=== PATIENT | male | born 2000 | race Caucasian/White ===

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

== ENCOUNTER 2020-05-20 00:05 | Emergency (ER) | payer BC, OTHER ==
[2020-05-20] MEDS ORDERED: Ketorolac 30 MG/ML SDV IVPUSH ONE (00:55)
[2020-05-20] MEDS ORDERED: Prochlorperazine 10 MG in Sodium Chloride 0.9% 50 ML IV ONE (00:55)
[2020-05-20] MEDS ORDERED: diphenhydrAMINE 50 MG/ML SDV IVPUSH ONE (00:55)
[2020-05-20] MEDS ORDERED: Sodium Chloride 0.9% 1,000 ML IV ONE (00:56)
[2020-05-20] MEDS ORDERED: Prochlorperazine 10 MG/2 ML SDV ONE (01:25)
--- NOTE | 2020-05-20 01:28 | EDM.PDOC ---
ED HPI GENERAL MEDICAL PROBLEM - General Chief Complaint: Headache Stated Complaint: HEADACHE Time Seen by Provider: 05/20/20 00:25 - History of Present Illness INITIAL COMMENTS - FREE TEXT/NARRATIVE: HISTORY AND PHYSICAL: History of present illness: This is a 19-year-old gentleman with a history significant for meningitis resulting in chronic migraines who gets monthly migraine injection who presents ER today secondary to not feeling well and having signs and symptoms consistent with breakthrough migraine. I had a discussion with the patient as well as mother over the phone who lives in [place] I believe. She reports that he gets his medication sent to his school and somehow this go around with his medication the school was unable to find his medicine until approximately 7 days after he was sent. She reports that the 7-day delay has caused him to be behind the 8 ball and usually 1 his symptoms are like this he requires a migraine cocktail to break the cycle so that the medication will continue to help. He has tried other of his usual regimens and treatments at home without success. Patient denies any other symptomatology at this time. Patient denies any recent fevers, shakes, chills, nausea, vomiting, diarrhea, dysuria, frequency, urgency, chest pain, shortness of breath. It appears that the patient had a petit mall seizure earlier today which is not unusual for him. Patient reports he usually has 1 every 3 months. Patient reports he was recently diagnosed with coronavirus in April. Review of systems: As per history of present illness and below otherwise all systems reviewed and negative. Past medical history: As per history of present illness and as reviewed below otherwise noncontributory. Surgical history: As per history of present illness and as reviewed below otherwise nonco ntributory. Social history: No reported history of drug or alcohol abuse. Family history: As per history of present illness and as reviewed below otherwise noncontributory. Physical exam: HEENT: Atraumatic, normocephalic, pupils reactive, negative for conjunctival pallor or scleral icterus, mucous membranes moist, throat clear, neck supple, nontender, trachea midline. Lungs: Clear to auscultation, breath sounds equal bilaterally, chest nontender. Heart: S1S2, regular, negative for clicks, rubs, or JVD. Abdomen: Soft, nondistended, nontender. Negative for masses or hepatosplenomegaly. Negative for costovertebral tenderness. Pelvis: Stable nontender. Genitourinary: Deferred. Rectal: Deferred. Extremities: Atraumatic, negative for cords or calf pain. Neurovascular unremarkable. Neuro: Awake, alert, oriented. Cranial nerves II through XII unremarkable. Cerebellum unremarkable. Motor and sensory unremarkable throughout. Exam nonfocal. Assessment and plan: 19-year-old gentleman with a history significant for migraines presents ER today with breakthrough headache most likely secondary to delay in obtaining his monthly migraine medication. Mother reports that usually when he gets like this he requires a cocktail requiring Toradol, Compazine and Benadryl. Patient will be given a "migraine cocktail" as well as IV fluids and will be reevaluated once completed. Patient reports he feels better is tired. Patient will be discharged home in stable condition with instructions to follow-up with his regular physician for further instructions. Reassessment at the time of disposition demonstrates that the patient is in no acute distress. The patient has remained stable throughout the entire ED visit and is without objective evidence for acute process requiring urgent intervent ion or hospitalization. The patient is stable for discharge, counseling is provided as documented above, discussed symptomatic treatment and specific conditions for return. I have spoken with the patient/caregiver and discussed todays findings, in addition to providing specific details for the plan of care. Questions are answered and there is agreement with the plan. Definitive disposition and diagnosis as appropriate pending reevaluation and review of above. headache Pain Score (Numeric/FACES): 8 - Related Data Allergies Allergy/AdvReac Type Severity Reaction Status Date / Time No Known Allergies Allergy Verified 05/20/20 00:24 Home Meds: Home Meds Diclofenac Potassium [Cambia] 50 mg PO ASDIRECTED PRN 09/22/19 [History] FLUoxetine HCl [Prozac] 20 mg PO DAILY 09/22/19 [History] Gabapentin [Neurontin] 1,200 mg PO BID 09/22/19 [History] Shot For Headache Monthly 05/20/20 [History] methylPREDNISolone [Methylprednisolone] 4 mg PO ASDIRECTED 05/20/20 [History] Past Medical History HEENT History: Reports: Impaired Vision Other HEENT History: Glasses Cardiovascular History: Reports: Other (See Below) Other Cardiovascular History: long QT Musculoskeletal History: Reports: None Neurological History: Reports: Other (See Below) Other Neuro History: Viral/Spinal Mengitits Psychiatric History: Reports: Depression - Infectious Disease History Infectious Disease History: Reports: Other (See Below) Other Infectious Disease History: viral/spiral meningitis - Past Surgical History Other HEENT Surgeries/Procedures: Ear Tubes Cardiovascular Surgical History: Reports: None Neurological Surgical History: Reports: None Other Musculoskeletal Surgeries/Procedures:: Torn Meniscus Social & Family History - Family History Family Medical History: Noncontributory - Tobacco Use Tobacco Use Status *Q: Never Tobacco User Second Hand Smoke Exposure: No - Caffeine Use Caffeine Use: Reports: Soda - Recreational Drug Use Recreational Drug Use: No ED ROS GENERAL - Review of Systems Review Of Systems: See Below ED EXAM, GENERAL - Physical Exam Exam: See Below Course - Vital Signs Last Recorded V/S: Last Vital Signs Temp 96.8 F L 05/20/20 00:15 Pulse 68 05/20/20 02:20 Resp 16 05/20/20 02:20 BP 113/70 05/20/20 02:20 Pulse Ox 98 05/20/20 02:20 - Orders/Labs/Meds Meds: Medications Discontinued Medications Generic Name Dose Route Start Last Admin Trade Name Marino PRN Reason Stop Dose Admin Diphenhydramine HCl 25 mg 05/20/20 00:55 05/20/20 01:27 Benadryl IVPUSH 05/20/20 00:56 25 mg ONETIME ONE Administration Sodium Chloride 1,000 mls @ 999 mls/hr 05/20/20 00:56 05/20/20 01:27 Normal Saline IV 05/20/20 01:56 999 mls/hr .Bolus ONE Administration Ketorolac Tromethamine 30 mg 05/20/20 00:55 05/20/20 01:27 Toradol IVPUSH 05/20/20 00:56 30 mg ONETIME ONE Administration Prochlorperazine Edisylate Confirm 05/20/20 01:25 05/20/20 01:32 Compazine Administered 05/20/20 01:26 Not Given Dose 10 mg .ROUTE .STK-MED ONE Prochlorperazine Edisylate 10 mg 05/20/20 01:30 05/20/20 01:30 Compazine IVPUSH 05/20/20 01:31 10 mg ONETIME ONE Administration Departure - Departure Time of Disposition: 02:20 Disposition: Home, Self-Care 01 Clinical Impression: Migraine - Discharge Information Instructions: Recurrent Migraine Headache Referrals: PCP,Not In Area [Primary Care Provider] - Forms: ED Department Discharge Additional Instructions: The following information is given to patients seen in the emergency department who are being discharged to home. This information is to outline your options for follow-up care. We provide all patients seen in our emergency department with a follow-up referral. The need for follow-up, as well as the timing and circumstances, are variable depending upon the specifics of your emergency department visit. If you don't have a primary care physician on staff, we will provide you with a referral. We always advise you to contact your personal physician following an emergency department visit to inform them of the circumstance of the visit and for follow-up with them and/or the need for any referrals to a consulting specialist. The emergency department will also refer you to a specialist when appropriate. This referral assures that you have the opportunity for follow-up care with a specialist. All of these measure are taken in an effort to provide you with optimal care, which includes your follow-up. Under all circumstances we always encourage you to contact your private physician who remains a resource for coordinating your care. When calling for follow-up care, please make the office aware that this follow-up is from your recent emergency room visit. If for any reason you are refused follow-up, please contact the [facility] Emergency Department at and asked to speak to the emergency department charge nurse. Sepsis Event Note (ED) - Evaluation Sepsis Screening Result: No Definite Risk - Focused Exam Vital Signs: Vital Signs Temp Pulse Resp BP Pulse Ox 05/20/20 02:20 68 16 113/70 98 05/20/20 00:15 96.8 F L 63 17 133/70 97
[2020-05-20] MEDS ORDERED: Prochlorperazine 10 MG/2 ML SDV IVPUSH ONE (01:30)
== END 2020-05-20 02:20 | disposition home or self-care (01) ==
LOC: MW.ED 00:05
DX: G43.909 Migraine, unspecified, not intractable, without status migrainosus (principal); F32.9 Major depressive disorder, single episode, unspecified; Z79.899 Other long term (current) drug therapy
CPT/HCPCS: 96374; 96375; 99283; J0780; J1200; J1885; J7030